=== PATIENT | male | born 1985 | race Caucasian/White ===

== ENCOUNTER 2024-08-21 07:07 | Emergency (ER) | payer OTHER, SELFPAY ==
[2024-08-21 07:15] VITALS: BP 137/87
--- NOTE | 2024-08-21 08:31 | ED.GENMED ---
History of Present Illness
General
Chief Complaint: Eye Problems
Source: patient
Exam Limitations: none
Time Seen by Provider: 08/21/24 07:28
Nursing documentation reviewed up to this point in time: agreed with
History of Present Illness
History of Present Illness:
Patient presents to ED secondary to recurrent left eye pain with redness over the past 2 days. Patient has had similar symptoms in the past, secondary to 'corneal scratch', treated with antibiotic drops. As patient has had at least twice a year
symptoms over the past few years, patient has been evaluated by 'eye doctor' who told him that healed site may be reopening due to seasonal changes. Patient has utilized previously prescribed ofloxacin eye drops yesterday, with minimal relief in
symptoms. Denies trauma. Denies foreign body sensation. Denies fever. Denies headache. Denies direct trauma. Patient states that his eye is exquisitely sensitive to light currently. Patient does not wear contact lenses.
Past History
Past History
ED Past Medical History: None
ED Past Surgical History: None
Social History
Tobacco: Non-smoker
Alcohol: Occasional
Personal: Single
Living: with family
Employment: Employed
Family History
Family History: Other (Noncontributory)
Review of Systems
Review of Systems
Allergies reviewed?: Yes
All Other Systems: ROS reviewed and negative except as documented in HPI and ROS
Constitutional: Reports no symptoms; Denies fever
EENT: Reports other (eye pain w redness)
Skin: Reports no symptoms
Neurological: Reports no symptoms; Denies headache or other (no visual changes)
Phy Exam
Physical Exam
Physical Exam:
Physical Exam
General: mild painful distress, not acutely ill. afebrile.
Head: nc/at. eomi. injected left conjunctival noted, along with positive fluorescein dye uptake at 5 o'clock
Neck: supple. normal range of motion
Neuro: alert and oriented x 3. no focal neurological deficits
Skin: no rash
Psychiatric: well kept. interactive and cooperative
Extremities: no edema. no calf tenderness.
Course
Vital Signs
Initial and Last Documented VS:
Initial Vital Signs
Temp Pulse Resp BP Pulse Ox
97.5 F 74 20 137/87 99
08/21/24 07:15 08/21/24 07:15 08/21/24 07:15 08/21/24 07:15 08/21/24 07:15
Last Documented Vital Signs
Temp Pulse Resp BP Pulse Ox
97.5 F 74 20 137/87 99
08/21/24 07:15 08/21/24 07:15 08/21/24 07:15 08/21/24 07:15 08/21/24 07:15
MDM/Problems Addressed
MDM/Problems Addressed:
History and exam consistent with recurrent corneal abrasion. Patient will contact ophthalmology at [facility] upon discharge for reevaluation. Until then, patient will continue to utilize ofloxacin eyedrop.
*Critical Care Note
Total Time (30-74mins, 75-104mins- exclusive of procedures): Not Applicable
ED Attending Note
-
Portions of this chart may have been created with voice recognition software.� Occasional wrong word or��sound alike� substitutions may have occurred due to the inherent limitations of voice recognition software.
Discharge Plan
Departure
Patient Disposition: Home (Routine Discharge)
Date of Disposition: 08/21/24
Time of Disposition: 08:31
Patient with high blood pressure during this ER visit?: Yes
Condition: Good
Discharge Problem:
Abrasion, corneal
Instructions: Corneal Abrasion (DC)
Referrals:
Manjit Turpin, DO [Family Provider] -
Stand Alone Forms: Return to Work
Activity Restrictions/Additional Instructions:
As discussed, please follow-up with your digital technician for reevaluation this week.
Interventions
Interventions:
*Risk Screen - Suicide Last Done: 08/21/24 07:15
*General Assessment Last Done: 08/21/24 07:15
Discharge Date and Time
Print Language: ICELANDIC
== END 2024-08-21 08:48 | disposition home or self-care (01) ==
LOC: EMR 07:07
PROVIDERS: EMERGENCY PHYSICIAN Emergency Medicine; FAMILY PHYSICIAN Family Medicine
DX: S05.02XA Injury of conjunctiva and corneal abrasion without foreign body, left eye, initial encounter (principal); X58.XXXA Exposure to other specified factors, initial encounter
CPT/HCPCS: 99283

== ENCOUNTER → 2025-04-03 20:42 | Outpatient (REF) | payer OTHER, SELFPAY | LOC: MRI 3T 20:42 | PROVIDERS: ATTENDING PHYSICIAN Physician Assistant | DX: M54.12 Radiculopathy, cervical region (principal) | CPT/HCPCS: 72141 ==